=== PATIENT | female | born 1945 | race Hispanic/Latino ===

== ENCOUNTER 2018-12-19 06:01 | Day surgery (SDC) | payer MEDICARE, OTHER ==
[2018-12-19 06:28] VITALS: BMI 25.4
[2018-12-19] MEDS ORDERED: Lactated Ringer's 1,000 ML IV ONE (07:00)
[2018-12-19] MEDS ORDERED: Propofol 10 mg/ml Inj (20 ML) ONE (07:29)
[2018-12-19] MEDS ORDERED: ePHEDrine 50 mg/ml Inj ONE (07:30)
[2018-12-19] MEDS ORDERED: Midazolam 2 MG/2 ML VIAL ONE (07:30)
[2018-12-19] MEDS ORDERED: Succinylcholine 200 mg/10 ml Inj IV ONE (07:30)
--- NOTE | 2018-12-19 07:51 | CP.PCM.HP ---
History of Present Illness - History of Present Illness History of Present Illness: 72-year-old female with thickened endometrium on ultrasound. Pelvic ultrasound reports fluid within endometrium as well as possible polyps. Office endometrial biopsy failed due to cervical stenosis. Patient for hysteroscopy D&C. Present on Admission - Present on Admission Any Indicators Present on Admission: No History of DVT/PE: No History of Uncontrolled Diabetes: No Urinary Catheter: No Decubitus Ulcer Present: No Past Patient History - Infectious Disease Hx of Infectious Diseases: None - Tetanus Immunizations Tetanus Immunization: Unknown - Past Medical History & Family History Past Medical History?: Yes - Past Social History Smoking Status: Never Smoked - CARDIAC Hx Cardiac Disorders: Yes Hx Pacemaker: No Other/Comment: carotid stenosis ultrasound 05/10/2013 - PULMONARY Hx Respiratory Disorders: Yes Hx Asthma: Yes (last SEP 2018) Hx Bronchitis: Yes Hx Chronic Obstructive Pulmonary Disease (COPD): No - NEUROLOGICAL Hx Neurological Disorder: No Hx Paralysis: No - HEENT Hx HEENT Problems: Yes Hx Glaucoma: Yes (both) Other/Comment: laser sx r eye, hx of otitis media - RENAL Hx Chronic Kidney Disease: No - ENDOCRINE/METABOLIC Hx Endocrine Disorders: No - HEMATOLOGICAL/ONCOLOGICAL Hx Blood Disorders: Yes Hx Blood Transfusions: Yes - INTEGUMENTARY Hx Dermatological Problems: No - MUSCULOSKELETAL/RHEUMATOLOGICAL Hx Musculoskeletal Disorders: Yes Hx Arthritis: Yes Hx Falls: Yes Hx Unsteady Gait: Yes (uses a cane "sometimes") - GASTROINTESTINAL Hx Gastrointestinal Disorders: Yes (CHOLECYSTITIS,CHOLELITHIASIS POST LAP LIGIA,GASTRITIS,BILIARY COLIC,) Hx Gastritis: Yes Other/Comment: egd with bx and colonoscopy with polypectomy 06/14/16 dx hemorrhoids, colon polyp, gastritis - GENITOURINARY/GYNECOLOGICAL Hx Genitourinary Disorders: Yes (UTI) Hx Hematuria: Yes (at times) Hx Reproductive Disorders: No Other/Comment: mammogram 05/15/16 dense breasts, breast ultrasound b/l 10/17/14 negative - PSYCHIATRIC Hx Emotional Abuse: No Hx Physical Abuse: No - SURGICAL HISTORY Hx Surgeries: Yes Hx Cholecystectomy: Yes Hx Eye Surgery: Yes (right eye for glaucoma) Other/Comment: laser sx r eye - ANESTHESIA Hx Anesthesia: Yes Hx Anesthesia Reactions: Yes (nausea; takes time to recover) Hx Malignant Hyperthermia: No Meds Allergies/Adverse Reactions: Allergies Allergy/AdvReac Type Severity Reaction Status Date / Time UNKNOWN ANTIBIOTICS Allergy REDNESS Uncoded 12/18/18 12:47 Physical Exam - Constitutional Appears: Well, No Acute Distress - Head Exam Head Exam: ATRAUMATIC - Eye Exam Eye Exam: Normal appearance, PERRL - ENT Exam ENT Exam: Mucous Membranes Moist - Respiratory Exam Respiratory Exam: Clear to Auscultation Bilateral, NORMAL BREATHING PATTERN - GI/Abdominal Exam GI & Abdominal Exam: Soft. absent: Distended, Tenderness - Extremities Exam Extremities exam: Positive for: normal inspection. Negative for: calf tenderness - Neurological Exam Neurological exam: Alert, Oriented x3 Results - Vital Signs Recent Vital Signs: Last Vital Signs Temp 97.5 F L 12/19/18 06:30 Pulse 86 12/19/18 07:11 Resp 18 12/19/18 06:30 BP 142/83 12/19/18 06:30 Pulse Ox 98 12/19/18 06:30 - Imaging and Cardiology US - abdomen Status: Report reviewed by me Assessment & Plan - Assessment and Plan (Free Text) Assessment: 72-year-old female with thickened endometrium, fluid in the endometrium, possible polyps on endometrium. Plan: Patient for hysteroscopy, D&C. Discussed with patient the risk, benefits, alternatives of procedure. All patient questions answered. Patient consented for procedure. Plan for routine postop observation and care. - Date & Time Date: 12/19/18 Time: 07:52
[2018-12-19] MEDS ORDERED: HYDROmorphone 0.5 mg/0.5 ml ISec IVP PRN (09:32)
[2018-12-19] MEDS ORDERED: Lactated Ringer's 1,000 ML IV SCH (09:45)
--- NOTE | 2018-12-19 09:59 | PCM.SURG1 ---
Surgeon's Initial Post Op Note - Surgeon's Notes Surgeon: Isaac Loop Tacker: N/A Type of Anesthesia: General Endo Anesthesia Administered By: Farshad Pre-Operative Diagnosis: Thickened endometrium, fluid and possible polyps in uterus Operative Findings: +small polyp appearing structures on endometrium, otherwise normal appearing anatomy Post-Operative Diagnosis: Same Operation Performed: Hysteroscopy, D&C, LEEP (done for exposure) Specimen/Specimens Removed: 1. EMC 2. LEEP Estimated Blood Loss: EBL {In ML}: 10 Blood Products Given: N/A Drains Used: No Drains Post-Op Condition: Good Date of Surgery/Procedure: 12/19/18 Time of Surgery/Procedure: 09:59
[2018-12-19 14:04] VITALS: RESP 18
[2018-12-19 16:36] VITALS: BP 120/67; PULSE 98; TEMP 98; O2SAT 96
--- NOTE | 2018-12-19 23:53 | OP ---
PROCEDURE DATE: 12/19/2018 PREOPERATIVE DIAGNOSES: Postmenopausal thickened endometrium, fluid and possible polyps within uterus. POSTOPERATIVE DIAGNOSES: Postmenopausal thickened endometrium, fluid and possible polyps within uterus. OPERATION PERFORMED: Hysteroscopy, dilatation and curettage, loop electrosurgical excision procedure and cone biopsy completed for visualization purposes. OPERATIVE FINDINGS: Uterine lining with small polyp-appearing material. Otherwise, normal appearing pelvic anatomy. ESTIMATED BLOOD LOSS: 10 mL. FLUIDS: 600 mL of lactated Ringer's. SURGEON: Jagdeep Gray MD ANESTHESIOLOGIST: Megan Yen MD ANESTHESIA: General. COMPLICATIONS: None. DESCRIPTION OF PROCEDURE: The patient was taken to the operating room where general anesthesia was found to be adequate. The patient was prepped and draped in normal sterile fashion in the dorsal lithotomy position. A Rosales retractor was placed at the posterior aspect of the vagina. A Orlin retractor was placed at the anterior aspect of the vagina. The cervix was grasped with a single-tooth tenaculum at the anterior surface. Attempt at dilation with Bai dilators was unsuccessful. Attempt with lacrimal dilator was unsuccessful. Due to cervical stenosis, decision was made for LEEP cone biopsy. LEEP cone biopsy completed under direct visualization with electrocautery device. After removal of biopsy tissue, the cervix was found to be accessible. The cervix was dilated with Bai dilators to a size of 20 Portuguese. The hysteroscope was placed through the cervix into the uterine cavity and the above findings noted. The hysteroscope was removed from the patient. The uterus was gently curetted with a sharp curette and this tissue was sent to pathology. All instruments were removed from the patient. The LEEP cone biopsy site was electrocauterized for hemostasis. Both the cervical os, LEEP cone biopsy site, and tenaculum site were found to be hemostatic. All instruments were removed from the patient. The patient tolerated the procedure well. All sponge, lap, needle counts were correct x2. There were no complications. The patient was taken to the recovery room in awake and stable condition. Jagdeep Gray MD
== END 2018-12-19 19:00 | disposition home or self-care (01) ==
LOC: H.OPSURG 06:01
PROVIDERS: ATTEND Obstetrics & Gynecology
DX: R93.89 Abnormal findings on diagnostic imaging of other specified body structures (principal); E11.9 Type 2 diabetes mellitus without complications; E78.5 Hyperlipidemia, unspecified; I10 Essential (primary) hypertension; M48.02 Spinal stenosis, cervical region; J45.909 Unspecified asthma, uncomplicated; Z78.0 Asymptomatic menopausal state
CPT/HCPCS: 57522; 58558; 88305; J0330; J2001; J2250; J2704; J3010; J7120